=== PATIENT | male | born 1955 | race Caucasian/White ===

== ENCOUNTER 2019-01-14 16:19 | Emergency (ER) | payer BC ==
[~2019-01-14] VITALS: Ht 177.8 cm; Wt 100.2 kg
--- OUTSIDE RECORDS SUMMARY | 2019-01-14 16:22 | XMS REPORT ---
Author Author [facility] Address Unknown Phone Unavailable Care Team Providers Care Want Ad Supervisor Name Role Phone JESUS TOLEDO Unavailable Unavailable Problems This patient has no known problems. Allergies, Adverse Reactions, Alerts This patient has no known allergies or adverse reactions. Medications This patient has no known medications. Results Test Description Test Time Test Comments Text Results Atomic Results Result Comments CHEST 2 VIEWS 2019-01-14 15:00:00 [place] [id number] [place] [address] Patient Name: PRESLEY PAGE MR #: [id number] : 1955 Age/Sex: 63/M Req #: [id number] Adm Physician: Ordered by: JESUS TOLEDO MD Report #: [id number] Location: [place] Room/Bed: Procedure: [id number] DX/CHEST 2 VIEWS Exam Date: 01/14/19 Exam Time: 1425 REPORT STATUS: Signed EXAMINATION: CHEST 2 VIEWS INDICATION: Renal malignancy. COMPARISON: None FINDINGS: TUBES and LINES: None. LUNGS: Lungs are well inflated. Lungs are clear. There is no evidence of pneumonia or pulmonary edema. PLEURA: No pleural effusion or pneumothorax. HEART AND MEDIASTINUM: The cardiomediastinal silhouette is unremarkable. BONES AND SOFT TISSUES: No acute osseous lesion. Soft tissues are unremarkable. UPPER ABDOMEN: No free air under the diaphragm. IMPRESSION: No acute radiographic abnormality. Signed by: Dr. Arthur Bryan MD on 01/14/2019 3:08 PM Dictated By: ARTHUR BRYAN MD [id number] Transcribed By: JOHN on 01/14/19 1501 COPY TO: JESUS TOLEDO MD CT ABDOMEN/PELVIS W 2019-01-14 14:37:00 [place] [address] Patient Name: PRESLEY PAGE MR #: [id number] : 1955 Age/Sex: 63/M Req #: [id number] Adm Physician: Ordered by: JESUS TOLEDO MD Report #: [id number] Location: [place] Room/Bed: Procedure: [id number] CT/CT ABDOMEN/PELVIS W Exam Date: 01/14/19 Exam Time: 1419 REPORT STATUS: Signed EXAM: CT of the abdomen and pelvis WITH contrast HISTORY: Malignant neoplasm, per the patient high PSA and positive prostate biopsy COMPARISON: None available. TECHNIQUE: The abdomen and pelvis were scanned utilizing a multidetector helical scanner. Coronal and sagittal reformats are provided. PROTOCOL: Routine IV CONTRAST: 100 cc of Isovue-370. ORAL CONTRAST: Water RADIATION DOSE: Total DLP: 756.5 to mGy*cm Estimated effective dose: (DLP x 0.015 x size factor) Dose modulation, iterative reconstruction, and/or weight based adjustment of the mA/kV was utilized to reduce the radiation dose to as low as reasonably achievable. COMPLICATIONS: None FINDINGS: LOWER THORAX: Unremarkable. HEPATOBILIARY: Diffusely decreased attenuation, compatible with fatty infiltration. No mass. No biliary dilation. No calcified gallstone. SPLEEN: No splenomegaly. PANCREAS: No focal masses or ductal dilatation. ADRENALS: No discrete adrenal nodule. KIDNEYS/URETERS: No hydronephrosis, stones, or definite solid mass lesions. PELVIC ORGANS/BLADDER: Mild enlargement of the prostate, 5.9 cm (ML). The urinary bladder is partially decompressed, and when allowing for the amount of decompression, the wall appears diffusely thick, questionable 6 mm intraluminal density at the inferior aspect (sagittal image 76). GI TRACT: No dilation or wall thickening identified. No inflammatory changes about the cecum. PERITONEUM / RETROPERITONEUM: No free air or fluid. LYMPH NODES: No pathologically enlarged lymph node. VESSELS: Scattered atherosclerotic vascular calcifications, including the coronary arteries. BONES: Mild diffusely heterogeneous sclerosis and thickening of the right iliac bone and right ischium. A small focus of subchondral curvilinear sclerosis at the weightbearing portion of the right femoral head without associated subchondral collapse. SOFT TISSUES: A small fat-containing umbilical hernia and a moderate fat-containing left inguinal hernia, without associated inflammatory changes. IMPRESSION: 1. Mildly enlarged prostate. 2. The findings involving the osseous structures of the right hemipelvis, are likely the sequela of Paget disease. However, in the setting of prostate cancer with elevated PSA, a nuclear medicine bone scan may be warranted for confirmation. 3. 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 4. Diffuse bladder wall thickening, may reflect chronic outlet obstruction or cystitis in the appropriate setting. Questionable nonspecific 6 mm intraluminal density at the inferior aspect of the bladder, direct visualization may be warranted for further characterization. 5. Coronary atherosclerosis. 6. Hepatic steatosis. Signed by: Dr. Magdalena Chaudhary D.O., M.M.M. on 01/14/2019 2:52 PM Dictated By: MAGDALENA CHAUDHARY DO [id number] Transcribed By: JOHN on 01/14/19 727 COPY TO: JESUS TOLEDO MD
--- NOTE | 2019-01-14 16:45 | NUR ---
ASKED MD IF WANTED IV LINE FOR MEDS, STATES PO ONLY.
[2019-01-14] MEDS ORDERED: CLONIDINE HCL 0.2 MG TAB PO ONE (17:00)
[2019-01-14] MEDS ORDERED: LORAZEPAM 1 MG TAB PO ONE ×2 (17:00→17:15)
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
[2019-01-14] MEDS ORDERED: AMLODIPINE BESYLATE 10 MG TAB PO ONE (18:00)
[2019-01-14] MEDS ORDERED: HYDRALAZINE HCL 25 MG TAB PO ONE (18:00)
--- NOTE | 2019-01-14 18:39 | NUR ---
pt states ok to talke with dad and sister and family regarding his health information.
--- NOTE | 2019-01-14 18:40 | NUR ---
checked by bilaterally.
== END 2019-01-14 19:04 | disposition home or self-care (01) ==
LOC: FSED 16:19
DX: I16.0 Hypertensive urgency (principal); I10 Essential (primary) hypertension
CPT/HCPCS: 93005; 99284

== ENCOUNTER → 2019-01-14 | Outpatient (CLI) | payer BC ==
[~2019-01-14] MED LIST: IOPAMIDOL 370 MG/ML 200 ML INFUS..BTL INJ ONE; SODIUM CHLORIDE 0.9% 50ML 50 ML ONE
[2019-01-14 13:35] LABS: BLOOD UREA NITROGEN 10 mg/dL (7-26); BUN/CREATININE RATIO 10 (6-25); CREATININE, SERUM 0.96 mg/dL (0.72-1.25); EST GLOMERULAR FILTRATION RATE > 60 ML/MIN (60-)
--- NOTE | 2019-01-14 14:55 | Diagnostic Imaging Report ---
EXAM: CT of the abdomen and pelvis WITH contrast HISTORY: Malignant neoplasm, per the patient high PSA and positive prostate biopsy COMPARISON: None available. TECHNIQUE: The abdomen and pelvis were scanned utilizing a multidetector helical scanner. Coronal and sagittal reformats are provided. PROTOCOL: Routine IV CONTRAST: 100 cc of Isovue-370. ORAL CONTRAST: Water RADIATION DOSE: Total DLP: 756.5 to mGy*cm Estimated effective dose: (DLP x 0.015 x size factor) Dose modulation, iterative reconstruction, and/or weight based adjustment of the mA/kV was utilized to reduce the radiation dose to as low as reasonably achievable. COMPLICATIONS: None FINDINGS: LOWER THORAX: Unremarkable. HEPATOBILIARY: Diffusely decreased attenuation, compatible with fatty infiltration. No mass. No biliary dilation. No calcified gallstone. SPLEEN: No splenomegaly. PANCREAS: No focal masses or ductal dilatation. ADRENALS: No discrete adrenal nodule. KIDNEYS/URETERS: No hydronephrosis, stones, or definite solid mass lesions. PELVIC ORGANS/BLADDER: Mild enlargement of the prostate, 5.9 cm (ML). The urinary bladder is partially decompressed, and when allowing for the amount of decompression, the wall appears diffusely thick, questionable 6 mm intraluminal density at the inferior aspect (sagittal image 76). GI TRACT: No dilation or wall thickening identified. No inflammatory changes about the cecum. PERITONEUM / RETROPERITONEUM: No free air or fluid. LYMPH NODES: No pathologically enlarged lymph node. VESSELS: Scattered atherosclerotic vascular calcifications, including the coronary arteries. BONES: Mild diffusely heterogeneous sclerosis and thickening of the right iliac bone and right ischium. A small focus of subchondral curvilinear sclerosis at the weightbearing portion of the right femoral head without associated subchondral collapse. SOFT TISSUES: A small fat-containing umbilical hernia and a moderate fat-containing left inguinal hernia, without associated inflammatory changes. IMPRESSION: 1. Mildly enlarged prostate. 2. The findings involving the osseous structures of the right hemipelvis, are likely the sequela of Paget disease. However, in the setting of prostate cancer with elevated PSA, a nuclear medicine bone scan may be warranted for confirmation. 3. 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 4. Diffuse bladder wall thickening, may reflect chronic outlet obstruction or cystitis in the appropriate setting. Questionable nonspecific 6 mm intraluminal density at the inferior aspect of the bladder, direct visualization may be warranted for further characterization. 5. Coronary atherosclerosis. 6. Hepatic steatosis. Signed by: Dr. Mukund Chaudhary D.O., M.M.M. on 01/14/2019 2:52 PM
--- NOTE | 2019-01-14 15:12 | Diagnostic Imaging Report ---
EXAMINATION: CHEST 2 VIEWS INDICATION: Renal malignancy. COMPARISON: None FINDINGS: TUBES and LINES: None. LUNGS: Lungs are well inflated. Lungs are clear. There is no evidence of pneumonia or pulmonary edema. PLEURA: No pleural effusion or pneumothorax. HEART AND MEDIASTINUM: The cardiomediastinal silhouette is unremarkable. BONES AND SOFT TISSUES: No acute osseous lesion. Soft tissues are unremarkable. UPPER ABDOMEN: No free air under the diaphragm. IMPRESSION: No acute radiographic abnormality. Signed by: Dr. Hebert Huizar MD on 01/14/2019 3:08 PM
--- NOTE | 2019-01-14 21:10 | Diagnostic Imaging Report ---
Bone Scan, delayed phase INDICATION: 63 M with elevated PSA and enlarged prostate; prostate biopsy results pending COMPARISON: CT abdomen/pelvis REPORT: Approximately 3 hours following intravenous administration of 26.5 mCi of Tc-99m MDP, delayed total body images in the anterior and posterior projections and selected spot images were obtained. Diffusely increased tracer is seen throughout the right ilium and right ischium. The right hemipelvis has an expansile appearance. Otherwise, distribution of tracer activity is unremarkable throughout the skeletal system. No abnormal accumulation of tracer is seen in the soft tissues or urinary tract. IMPRESSION: The diffuse osteoblastic process in the right ilium and ischium favors Paget's disease over bone metastases because of its expansile appearance. There are no lesions elsewhere in the skeletal system to suggest a pattern of metastatic bone disease. Signed by: Dr. Jessie Adams M.D. on 01/14/2019 9:06 PM
== END ==
LOC: NM 12:05
PROVIDERS: ATTEND Urology
DX: C61 Malignant neoplasm of prostate (principal)
CPT/HCPCS: 36415; 71046; 74177; 78306; 82565; 84520; A9503; Q9967

== ENCOUNTER 2019-04-04 13:01 | Inpatient (IN) | payer BC ==
[2019-04-01 15:02] LABS: BASOPHILS # (AUTO) 0.1 (0.0-0.1); BASOPHILS % 1.2 % (0.0-1.0); EOSINOPHILS # (AUTO) 0.3 (0.0-0.4); EOSINOPHILS % 3.7 % (0.0-6.0); LYMPHOCYTES # (AUTO) 2.4 (1.0-3.2); LYMPHOCYTES % 29.2 % (18.0-39.1); MEAN CORPUSCULAR HEMOGLOBIN 31.4 pg (28-32); MEAN CORPUSCULAR HGB CONC 34.9 g/dL (31-35); MEAN CORPUSCULAR VOLUME 90.1 fL (81-99); MONOCYTES # (AUTO) 0.8 (0.2-0.8); MONOCYTES % 10.2 % (4.4-11.3); NEUTROPHILS # (AUTO) 4.5 (2.1-6.9); PLATELET COUNT 207 x10e3/uL (140-360); RED BLOOD COUNT 4.77 x10e6/uL (4.3-5.7); RED CELL DISTRIBUTION WIDTH 12.6 % (11.7-14.4)
[~2019-04-04] VITALS: Ht 177.8 cm; Wt 103.4 kg
[~2019-04-04 13:01] MED LIST changes: +CRESTOR10 MG PO; -IOPAMIDOL 370 MG/ML 200 ML INFUS..BTL INJ ONE; +LOSARTAN POTAS100 MG PO; +METOPROLOL SUC100 MG PO; -SODIUM CHLORIDE 0.9% 50ML 50 ML ONE
[2019-04-04] MEDS ORDERED: CEFAZOLIN SOD 1 GM/NS 50ML 50 ML IV ONE (13:12)
[2019-04-04] MEDS ORDERED: D5.45%NS/KCL 20MEQ 1,000 ML IV SCH (16:22)
[2019-04-04] MEDS ORDERED: NALOXONE HCL INJ 0.4 MG/ML AMP IV PRN (16:30)
[2019-04-04] MEDS ORDERED: ACETAMINOPHEN 1000 MG/100 ML IV PRN (16:30)
[2019-04-04] MEDS ORDERED: DIPHENHYDRAMINE HCL INJ 50 MG/ML VIAL IM PRN (16:30)
[2019-04-04] MEDS ORDERED: ONDANSETRON HCL INJ 2MG/ML 2ML 2 MG/ML VIAL IV PRN (16:30)
[2019-04-04] MEDS ORDERED: MORPHINE SULFATE 1 MG/ML 30ML PCA IV PRN (16:30)
[2019-04-04] MEDS ORDERED: HYDROMORPHONE 2MG/ML 2 MG/ML ML ONE (16:45)
[2019-04-04] MEDS ORDERED: DEXAMETHASONE SOD PHOS INJ 4 MG/ML VIAL ONE (17:08)
[2019-04-04] MEDS ORDERED: ROCURONIUM BROMIDE 10 MG/ML 5ML VIAL ONE (17:08)
[2019-04-04] MEDS ORDERED: PROPOFOL IV EMULSION 10 MG/ML 20 ML VIAL ONE (17:08)
[2019-04-04] MEDS ORDERED: LIDOCAINE HCL 2% LOCAL INJ 5 ML SDV VIAL INJ ONE (17:08)
[2019-04-04] MEDS ORDERED: ACETAMINOPHEN 1000 MG/100 ML IV ONE (17:08)
[2019-04-04] MEDS ORDERED: SEVOFLURANE INHAL SOLN 250 ML PEN BTL ONE (17:08)
[2019-04-04] MEDS ORDERED: ONDANSETRON HCL INJ 2MG/ML 2ML 2 MG/ML VIAL ONE (17:08)
[2019-04-04] MEDS ORDERED: LIDOCAINE HCL 2% JELLY 5 ML TUBE ONE (17:08)
--- NOTE | 2019-04-04 17:49 | NUR ---
received to rm [id number] no distress noted, updated on poc vocied understanding, denies pain at this time, ivf infusing to r fa 20g no ss of infiltration noted, sergeant of corrections pump on demand instructed on usage voiced understanding, dsg to abdomen c/d/i, cheryl drain with bloody drainage noted, camara to bsd with yellow urine noted, no other co voiced call light in reach will continue ot monitor
[2019-04-04 17:54] VITALS: BP 138/75
[2019-04-04] MEDS ORDERED: MORPHINE SULFATE INJ 10 MG/ML ONE (19:29)
[2019-04-04] MEDS ORDERED: MIDAZOLAM HCL 2 MG/2 ML VIAL ONE (19:29)
[2019-04-04] MEDS ORDERED: FENTANYL CITRATE/PF 100MCG/2 ML INJ ONE (19:29)
[2019-04-04 19:30] VITALS: BP 138/75
[2019-04-04 20:00] VITALS: BP 116/60
[2019-04-04] MEDS: CEFAZOLIN SOD 1 GM/NS 50ML 50 ML IV SCH (20:33)
[2019-04-04] MEDS: SODIUM CHLORIDE 0.9% 1000ML 1,000 ML IV SCH (20:53)
[2019-04-04] MEDS: CRESTOR 10MG PO SCH (20:53)
[2019-04-04] MEDS: METOPROLOL SUCCINATE 50 MG TAB XL PO SCH (20:53)
[2019-04-04] MEDS ORDERED: NON-FORMULARY MEDICATION (Metoprolol Succinate 100 MG) PO SCH (21:00)
[2019-04-04] MEDS ORDERED: SIMVASTATIN 40 MG TAB PO SCH (21:00)
[2019-04-05] VITALS (8 sets, daily range): BP systolic 108–150; BP diastolic 63–77
[2019-04-05] MEDS: CEFAZOLIN SOD 1 GM/NS 50ML 50 ML IV SCH ×3 (05:01→21:46)
[2019-04-05 05:49] LABS: BASOPHILS % 0.3 % (0.0-1.0); EOSINOPHILS % 0.1 % (0.0-6.0); HEMATOCRIT 38.9 % (38.2-49.6); HEMOGLOBIN 12.9 g/dL (14.0-18.0); LYMPHOCYTES # (AUTO) 1.5 (1.0-3.2); LYMPHOCYTES % 12.3 % (18.0-39.1); MEAN CORPUSCULAR HEMOGLOBIN 30.9 pg (28-32); MEAN CORPUSCULAR HGB CONC 33.2 g/dL (31-35); MEAN CORPUSCULAR VOLUME 93.3 fL (81-99); MONOCYTES # (AUTO) 1.3 (0.2-0.8); MONOCYTES % 10.9 % (4.4-11.3); PLATELET COUNT 166 x10e3/uL (140-360); RED BLOOD COUNT 4.17 x10e6/uL (4.3-5.7); RED CELL DISTRIBUTION WIDTH 12.7 % (11.7-14.4)
[2019-04-05 06:09] LABS: ANION GAP 10.7 mmol/L (8-16); BLOOD UREA NITROGEN 15 mg/dL (7-26); BUN/CREATININE RATIO 16 (6-25); CALCIUM 8.8 mg/dL (8.4-10.2); CARBON DIOXIDE 27 mmol/L (22-29); CHLORIDE 105 mmol/L (98-107); CREATININE, SERUM 0.96 mg/dL (0.72-1.25); EST GLOMERULAR FILTRATION RATE > 60 ML/MIN (60-); GLUCOSE 112 mg/dL (74-118); POTASSIUM 3.7 mmol/L (3.5-5.1); SODIUM 139 mmol/L (136-145)
[2019-04-05] MEDS: SODIUM CHLORIDE 0.9% 1000ML 1,000 ML IV SCH ×3 (07:07→19:48)
[2019-04-05] MEDS: LOSARTAN POTASSIUM 100 MG TAB PO SCH (08:17)
[2019-04-05] MEDS ORDERED: BISACODYL 10 MG SUPP PR PRN (08:30)
[2019-04-05] MEDS ORDERED: MORPHINE SULFATE 1 MG/ML 30ML PCA IV PRN (08:30)
[2019-04-05] MEDS ORDERED: BISACODYL 10 MG SUPP PR ONE (08:30)
--- NOTE | 2019-04-05 09:30 | NUR ---
MAYS D/C AT THIS TIME PER ORDERS. PROVIDED WITH URINAL. INSTRUCTED TO USE WITH EACH VOID. PT VERBALIZED UNDERSTANDING. PT LEFT SITTING IN CHAIR. CALL LIGHT AND MACHINE CLIPPER CONTROL WITHIN REACH. INSTRUCTED TO CALL FOR ASSISTANCE.
--- NOTE | 2019-04-05 10:47 | NUR ---
PT AMBULATED IN HALLWAY AND WAS ASSISTED BACK TO BED. DULCOLAX SUPPOSITORY ADMINISTERED AT THIS TIME.
--- NOTE | 2019-04-05 13:30 | NUR ---
PT VOIDED AT THIS TIME.
--- NOTE | 2019-04-05 14:59 | NUR ---
PT STATES HE IS NOW PASSING GAS AND IS REQUESTING WATER. NOTIFIED DR. Peter TOLEDO RECEIVED ORDER FOR CLEAR LIQUID DIET. PROVIDED PT WITH WATER AND JELLO AT THIS TIME.
--- NOTE | 2019-04-05 19:42 | History and Physical ---
Mr. Duenas is a pleasant 63-year-old Latin-Indian man, who is admitted at this time for pelvic surgery by Dr. Diego for prostate cancer. HISTORY OF PRESENT ILLNESS: The patient had possible prostate cancer late last year. He has had evaluation of the study with a CAT scan and nuclear studies and is admitted at this time for lymph node resections. PAST MEDICAL HISTORY: Significant for hypertension and hyperlipidemia. HOME MEDICATIONS: Currently include: 1. Toprol-XL 50 mg daily. 2. Crestor 5 mg daily. 3. Losartan 25 mg once a day. PAST SURGICAL HISTORY: He has had previous surgery for a mass on his left foot. FAMILY HISTORY: Father is alive and well. Mother had cerebral aneurysm. PERSONAL AND SOCIAL HISTORY: The patient occasionally drinks alcohol, but no longer smokes. PHYSICAL EXAMINATION: GENERAL: At this time shows a pleasant Latin-Indian man, 5 feet 10 inches tall, about 223 pounds. Blood pressure 130/80. HEAD, EYES, EARS, NOSE, AND THROAT: Unremarkable. NECK: No jugular venous distention. THORAX: Heart sounds S1, S2 are equal. No murmurs. LUNGS: Clear. ABDOMEN: Protuberant. EXTREMITIES: No cyanosis, clubbing, or edema. ASSESSMENT: 1. Prostate carcinoma. 2. Hypertension. PLAN: I believe the patient represents standard risk. Please note, I asked him to increase his Toprol-XL to 100 mg daily at his last office visit. MD WALE Goss/NAPOLEON /[id number] cc: Napoleon Diego MD
[2019-04-05] MEDS: METOPROLOL SUCCINATE 50 MG TAB XL PO SCH (19:48)
[2019-04-05] MEDS: CRESTOR 10MG PO SCH (19:48)
[2019-04-06] VITALS (8 sets, daily range): BP systolic 111–146; BP diastolic 66–83
[2019-04-06] MEDS: SODIUM CHLORIDE 0.9% 1000ML 1,000 ML IV SCH ×3 (04:41→21:32)
[2019-04-06] MEDS: CEFAZOLIN SOD 1 GM/NS 50ML 50 ML IV SCH ×3 (04:41→21:35)
--- NOTE | 2019-04-06 07:10 | NUR ---
PT RESTING IN BED COMFORTABLY. PT IS S/P BILATERAL LYMPHADECTOMY. DRESSING TO THE LOWER ABD MIDLINE IS DRY AND INTACT. BELOW DRESSING IS A DEANDRA DRAIN SECURED TO GOWN PT REPORTS TOLERABLE PAIN 3/10 TO ABD. ON FILM RENTAL CLERK PUMP FOR PAIN CONTROL AND ON IV FLUIDS. PT IS ON CLEAR LIQUID DIET TOLERATING WELL WILL CONTINUE TO MONITOR PT CLOSELY. SIDE RAILSX2, BED WHEELS LOCKED, CALL LIGHT IS WITHIN EASY REACH, INSTRUCTED TO CALL FOR ASSISTANCE IF NEEDED
[2019-04-06] MEDS: LOSARTAN POTASSIUM 100 MG TAB PO SCH (08:34)
[2019-04-06 09:10] LABS: BASOPHILS # (AUTO) 0.1 (0.0-0.1); BASOPHILS % 0.6 % (0.0-1.0); EOSINOPHILS # (AUTO) 0.2 (0.0-0.4); EOSINOPHILS % 1.9 % (0.0-6.0); HEMATOCRIT 39.6 % (38.2-49.6); HEMOGLOBIN 13.4 g/dL (14.0-18.0); LYMPHOCYTES # (AUTO) 2.1 (1.0-3.2); MEAN CORPUSCULAR HEMOGLOBIN 31.5 pg (28-32); MEAN CORPUSCULAR HGB CONC 33.8 g/dL (31-35); MONOCYTES # (AUTO) 1.2 (0.2-0.8); MONOCYTES % 10.5 % (4.4-11.3); NEUTROPHILS # (AUTO) 7.8 (2.1-6.9); NEUTROPHILS % 68.5 % (38.7-80.0); PLATELET COUNT 168 x10e3/uL (140-360); RED BLOOD COUNT 4.26 x10e6/uL (4.3-5.7); RED CELL DISTRIBUTION WIDTH 12.8 % (11.7-14.4)
[2019-04-06 09:18] LABS: ANION GAP 10.8 mmol/L (8-16); BLOOD UREA NITROGEN 11 mg/dL (7-26); BUN/CREATININE RATIO 13 (6-25); CALCIUM 8.8 mg/dL (8.4-10.2); CARBON DIOXIDE 26 mmol/L (22-29); CHLORIDE 106 mmol/L (98-107); CREATININE, SERUM 0.87 mg/dL (0.72-1.25); EST GLOMERULAR FILTRATION RATE > 60 ML/MIN (60-); GLUCOSE 106 mg/dL (74-118); POTASSIUM 3.8 mmol/L (3.5-5.1); SODIUM 139 mmol/L (136-145)
[2019-04-06] MEDS ORDERED: INDOMETHACIN50 MG PO (11:50)
[2019-04-06] MEDS: ACETAMINOPHEN/CODEINE 300MG - 30MG TAB PO PRN ×2 (17:47→22:16)
--- NOTE | 2019-04-06 20:10 | NUR ---
Ambulates.voided.assessment done.no resp.distress.using ics.bed locked and in lowest position.phone and call light within reach.educated to call for assistance as needed.cheryl drain is in place.stable condition.
[2019-04-06] MEDS: CRESTOR 10MG PO SCH (21:32)
[2019-04-06] MEDS: METOPROLOL SUCCINATE 50 MG TAB XL PO SCH (21:34)
[2019-04-07] VITALS: BP 143/86
[2019-04-07] MEDS: ACETAMINOPHEN/CODEINE 300MG - 30MG TAB PO PRN ×2 (02:24→06:26)
[2019-04-07 04:00] VITALS: BP 140/88
--- NOTE | 2019-04-07 04:05 | Operative Report ---
DATE OF PROCEDURE: 04/04/2019 SURGEON: Oskar Diego MD PREOPERATIVE DIAGNOSES: 1. Prostate cancer. 2. Bladder lesion. 3. Umbilical hernia. POSTOPERATIVE DIAGNOSES: 1. Prostate cancer. 2. Umbilical hernia. 3. Bladder lesion consistent with bladder cancer. OPERATION PERFORMED: 1. Cystourethroscopy (separately performed to evaluate the bladder lesions). 2. Bilateral pelvic lymphadenectomy (separately performed to stage the patient's prostate cancer). 3. Umbilical hernia repair (separate procedure performed for the umbilical hernia). ENTRY LEVEL RECRUITER: Kiki Diego MD ANESTHESIA: General. COMPLICATIONS: None. CLINICAL SUMMARY: Bradley Duenas Jr. is a 63-year-old man, who was evaluated for elevated PSA. The patient's PSA was above 10. He underwent prostate biopsies, which proved to be positive. The patient is brought to the operating room for staging. He has umbilical hernia. He would like to repair. The patient on staging CT was found to have a bladder lesion. We plan to evaluate the patient's bladder with cystoscopic examination. OPERATIVE PROCEDURE IN DETAIL: Informed consent was verified. Bradley Duenas Jr. was properly identified, taken to the operating room, placed on the operating table in supine position. Anesthesia was uneventfully begun. The patient's abdomen, genitalia were shaved, prepped, and draped in usual sterile fashion. Flexible cystourethroscopy was performed. The cystoscope was inserted under direct vision into the patient's urethra. It was guided down the unremarkable urethra through the prostate bed, which was significant for early BPH. We entered the patient's bladder, which was significant for grade 1 trabeculations and there was a bladder tumor at the anterior portion of the right lateral wall consistent with bladder cancer. Due to the fact that we are performing a sterile procedure today, we did not proceed with transurethral resection of bladder tumor and we will do this at a later setting. The cystoscope was withdrawn. A Shane catheter was placed. A midline infraumbilical incision was made, carried through all layers of the abdominal wall. An extraperitoneal approach was utilized. The Garcia Sachin retractor was utilized as well. We performed bilateral pelvic lymphadenectomy. We utilized hemoclips to control the lymphatic channels as well as blood vessels. Margins of resection bilaterally included the Kevon's ligament at the distal margin, external iliac vein as the anterolateral margin, obturator fossa as the posterior medial margin, and bifurcation of common iliac as the proximal margin. Copious irrigation was performed. Hemostasis was verified. The obturator nerves were left uninjured and intact bilaterally. A Klaus drain was then placed through a separate stab incision and secured to the skin with nylon suture. We then proceeded with extending our incision and dissection. An intraperitoneal approach was then utilized. We isolated the umbilical hernia. The umbilical hernia was small. Once we fully isolated the umbilical hernia and it from any underlying attachments, we then utilized a heavy nonabsorbable suture to approximate and close the defect. This resulted in complete reduction of the umbilical hernia. Copious irrigation was performed and verified hemostasis. The rectus muscles were approximated with Vicryl suture in interrupted fashion. The fascia was approximated with heavy Vicryl suture in a [id number] interrupted fashion. The skin was approximated with skin ladonna. Sterile dressings were applied. The patient was uneventfully reversed from anesthesia and taken to recovery room in stable condition. There were no complications of the procedure. The patient tolerated the procedure well. Sponge, needle, and instrument counts were correct x2 within the case. Estimated blood loss was 50 mL. We will plan to proceed with routine postoperative care. Of course, we will follow the patient up on an indefinite basis in addition to his other management, we will perform a transurethral resection of the bladder tumor as an outpatient procedure in the near future. Oskar Diego MD OH/MODL /[id number] cc: Napoleon Parson
[2019-04-07] MEDS: SODIUM CHLORIDE 0.9% 1000ML 1,000 ML IV SCH (05:19)
[2019-04-07] MEDS: CEFAZOLIN SOD 1 GM/NS 50ML 50 ML IV SCH (05:37)
--- NOTE | 2019-04-07 07:35 | NUR ---
PT RESTING IN CHAIR COMFORTABLY. PT REPORTS PAIN TOLERABLE AT THIS TIME TO ABD ABD SITE DRESSING REMAINS DRY AND INTACT. DEANDRA DRAIN IS SECURED TO GOWN AND SUCTIONED. PT IV IS ON THE RIGHT FA PATENT AND DRY WILL CONTINUE TO MONITOR AT THIS TIME, SIDE RAILSX2, BED WHEELS LOCKED, CALL LIGHT IS WITHIN EASY REACH, INSTRUCTED TO CALL FOR ASSISTANCE IF NEEDED
[2019-04-07 07:53] VITALS: BP 145/88
[2019-04-07] MEDS ORDERED: INDOMETHACIN 50 MG PO PRN (08:30)
[2019-04-07] MEDS: LOSARTAN POTASSIUM 100 MG TAB PO SCH (08:31)
[2019-04-07 08:33] VITALS: BP 145/88
[2019-04-07] MEDS ORDERED: INDOMETHACIN 25 MG CAP PO PRN (09:00)
[2019-04-07] MEDS ORDERED: DOCUSATE SODIUM 100 MG CAP PO SCH (09:00)
[2019-04-07 09:35] LABS: BASOPHILS % 0.1 % (0.0-1.0); EOSINOPHILS # (AUTO) 0.2 (0.0-0.4); EOSINOPHILS % 1.7 % (0.0-6.0); HEMATOCRIT 39.5 % (38.2-49.6); LYMPHOCYTES # (AUTO) 1.7 (1.0-3.2); LYMPHOCYTES % 16.4 % (18.0-39.1); MEAN CORPUSCULAR HEMOGLOBIN 31.5 pg (28-32); MEAN CORPUSCULAR HGB CONC 35.4 g/dL (31-35); MONOCYTES % 9.8 % (4.4-11.3); NEUTROPHILS # (AUTO) 7.2 (2.1-6.9); NEUTROPHILS % 71.6 % (38.7-80.0); PLATELET COUNT 176 x10e3/uL (140-360); RED BLOOD COUNT 4.44 x10e6/uL (4.3-5.7); RED CELL DISTRIBUTION WIDTH 12.1 % (11.7-14.4)
--- NOTE | 2019-04-07 11:01 | NUR ---
SPOKE WITH PT [facility], SIGNED CHOICE FOR NURSES NIGHT AND DAY FAXED CLINICALS TO [phone]. WILL CONFIRM PT ACCEPTANCE.
[2019-04-07 11:05] LABS: ANION GAP 14.3 mmol/L (8-16); BLOOD UREA NITROGEN 8 mg/dL (7-26); BUN/CREATININE RATIO 10 (6-25); CALCIUM 9.1 mg/dL (8.4-10.2); CARBON DIOXIDE 22 mmol/L (22-29); CHLORIDE 100 mmol/L (98-107); CREATININE, SERUM 0.83 mg/dL (0.72-1.25); EST GLOMERULAR FILTRATION RATE > 60 ML/MIN (60-); GLUCOSE 157 mg/dL (74-118); POTASSIUM 3.3 mmol/L (3.5-5.1); SODIUM 133 mmol/L (136-145)
[2019-04-07] MEDS ORDERED: TYLENOL WITH C1 EACH PO (11:05)
[2019-04-07] MEDS ORDERED: BACTRIM DS TAB1 EACH PO (11:06)
[2019-04-07 11:50] VITALS: BP 144/85
--- NOTE | 2019-04-07 12:43 | NUR ---
DISCHARGE INSTRUCTIONS AND PRESCRIPTIONS GIVEN, PT VERBALIZED UNDERSTANDING. IV DC PRESSURE DRESSING APPLIED AND TAPED HH SET IS NOW OFF UNIT TO HOME
--- NOTE | 2019-04-08 16:33 | Discharge Summary ---
Mr. Duenas is a complex 63-year-old man, who was admitted on the for further evaluation of prostate cancer. HOSPITAL COURSE: On the , he was taken to the operating room by Dr. Diego, performed cystoscopy that demonstrated a bladder tumor and also laparotomy with a resection of lymph nodes and repair of umbilical hernia. The patient tolerated the procedure well, had some nausea postop, possibly due to analgesics. The patient on the first postoperative day had NG tube removed. He was able to resume liquids and resumed his blood pressure medications. The patient made gradual progress and by the , was eager to be discharged home. He will resume his home medications and follow up with Dr. Diego for further management of prostate cancer and bladder tumor. He will follow up with Dr. Parson on a regular basis. DISCHARGE DIAGNOSES: 1. Prostate cancer. 2. Bladder tumor. 3. Repair of umbilical hernia. 4. Resection of lymph nodes. 5. Hypertension. 6. Hyperlipidemia. MD WALE Goss/NAPOLEON /[id number] cc: MD Napoleon Dixon
--- NOTE | 2019-04-08 16:48 | NUR ---
CALLED BY DR TOLEDO AND TOLD [facility] DID NOT GO SEE PT, CALLED NURSES NIGHT AND DAY AND SPOKE WITH [facility] AT FIRST THEY STATED THEY DID NOT GET THE ORDER THEN AFTER LOOKING THEY STATED THEY FOUND THE ORDERS AND WILL CONTACT THE PT TO LET KNOW WHEN THEY ARE COMING OUT TO THE PT HOME.
== END 2019-04-07 12:30 | disposition home or self-care (01) | DRG 714 ==
LOC: OR 13:01 → MED/SURG 17:42
PROVIDERS: ADMIT Internal Medicine Cardiovascular Disease; ATTEND Internal Medicine Cardiovascular Disease
PROC: 0V508ZZ Destruction of Prostate, Via Natural or Artificial Opening Endoscopic (ICD-10-PCS; 2019-04-04)
PROC: 0WQF0ZZ Repair Abdominal Wall, Open Approach (ICD-10-PCS; 2019-04-04)
PROC: 07BC0ZZ Excision of Pelvis Lymphatic, Open Approach (ICD-10-PCS; principal; 2019-04-04 15:00)
DX: C61 Malignant neoplasm of prostate (principal); K42.9 Umbilical hernia without obstruction or gangrene; R59.0 Localized enlarged lymph nodes; I10 Essential (primary) hypertension; N32.9 Bladder disorder, unspecified; E78.5 Hyperlipidemia, unspecified
CPT/HCPCS: 36415; 80048; 85025; 86850; 86900; 88304; 88307; 93005; J0690; J1100; J2001; J2250; J2270; J2405; J7030

== ENCOUNTER → 2019-04-27 | Day surgery (SDC) | payer BC ==
[~2019-04-27] MED LIST changes: +AMLODIPINE BESYL5 MG PO; +B&O 60MG R/S 60 MG SUPP PR ONE; +BACTRIM DS TAB1 EACH PO; +CEFTRIAXONE SOD 1 GM/NS 50 ML 50 ML IV ONE; +DEXAMETHASONE SOD PHOS INJ 4 MG/ML VIAL ONE; +FENTANYL CITRATE/PF 100MCG/2 ML INJ ONE; +INDOMETHACIN50 MG PO; +IOPAMIDOL 610MG/1ML 300 MG/ML VIAL IV ONE; +LIDOCAINE HCL 2% LOCAL INJ 5 ML SDV VIAL INJ ONE; +MIDAZOLAM HCL 2 MG/2 ML VIAL ONE; +ONDANSETRON HCL INJ 2MG/ML 2ML 2 MG/ML VIAL ONE; +PROPOFOL IV EMULSION 10 MG/ML 20 ML VIAL ONE; +SEVOFLURANE INHAL SOLN 250 ML PEN BTL ONE; +TYLENOL WITH C1 EACH PO
[2019-04-27 09:17] VITALS: BP 144/92
--- NOTE | 2019-06-08 05:05 | Operative Report ---
DATE OF PROCEDURE: 04/27/2019 SURGEON: Oskar Diego MD PREOPERATIVE DIAGNOSES: 1. Obstructive benign prostatic hyperplasia. 2. Bladder lesion. POSTOPERATIVE DIAGNOSES: 1. Obstructive benign prostatic hyperplasia. 2. Bladder lesion. 3. Short bulbar urethral stricture. OPERATION PERFORMED: Note these were all staged procedures that are unrelated to the patient's prior pelvic lymphadenectomy. These procedures were performed as a result of finding tumor on the patient's cystoscopy at the time of pelvic lymphadenectomy for prostate cancer staging. The patient is aware of the risks of bleeding, infection, injury to adjacent structures, need for further procedures, and elected to proceed. Cystourethroscopy with calibration and dilation of short bulbar urethral stricture. OPERATIVE PROCEDURE IN DETAIL: Informed consent was verified. Barak Duenas Junior was properly identified, taken to the operating room, and placed on the cystoscopy table in supine position. Anesthesia was uneventfully begun. The patient was then carefully and gently repositioned in the dorsal lithotomy position with all pressure points well padded. His genitalia were prepared and draped in usual sterile fashion. The cystoscope sheath with the visual obturator in place was atraumatically inserted into the patient's urethra, it was guided down unremarkably urethra through a short bulbar urethral stricture that was gently dilated with the cystoscope sheath and this was dilated and calibrated to 22.5-Macanese in size. We passed through the prostate bed, which was significant for trilobar prostatic hypertrophy with a small median lobe, went to the patient's bladder and it was drained. Panendoscopy of the bladder revealed a bladder tumor anteriorly near the bladder neck, mostly on the right side of the bladder. There were no other suspicious lesions. There were no tumors. An 8-Macanese catheter was used to cannulate each ureter and retrograde ureteropyelogram was performed. Interpretation of retrograde ureteropyelography: Contrast was instilled in retrograde fashion bilaterally. There were no tumors, no stones, and no diverticula. Unobstructed drainage was observed bilaterally fluoroscopically. The distal ureters were both displaced medially, most likely from the patient's pelvic lymphadenectomy. Unobstructed drainage was observed bilaterally fluoroscopically. Cold cup biopsy forceps were then utilized to excise the bladder tumor. We then utilized a Bugbee electrode to vaporize and fulgurate the bladder mucosa for a total diameter of approximately 3 cm including the tumor base as well as the surrounding mucosa. Excellent hemostasis was achieved. The patient bladder was drained. Belladonna and opium suppository were placed. The patient was uneventfully reversed from anesthesia and taken to recovery room in stable condition. There were no complications to the procedure. He tolerated the procedure well. Plans will be to follow the patient up in the office for uroflowmetry and bladder ultrasonography should the patient's pelvic lymphadenectomy be negative, and should he require to proceed with radiotherapy. Careful consideration needs to be given to performing a transurethral resection of the prostate and waiting six months for the patient to heal prior to pursuing radiotherapy. Oskar MD SOHA Diego/NAPOLEON /[id number] cc: Napoleon Parson
== END | disposition home or self-care (01) ==
LOC: OR 05:23
PROVIDERS: ATTEND Urology
DX: C67.3 Malignant neoplasm of anterior wall of bladder (principal); R97.20 Elevated prostate specific antigen [PSA]; N40.1 Benign prostatic hyperplasia with lower urinary tract symptoms; N13.8 Other obstructive and reflux uropathy; R39.14 Feeling of incomplete bladder emptying; R35.1 Nocturia; N35.912 Unspecified bulbous urethral stricture, male; K42.9 Umbilical hernia without obstruction or gangrene; K40.90 Unilateral inguinal hernia, without obstruction or gangrene, not specified as recurrent; E29.1 Testicular hypofunction; I10 Essential (primary) hypertension; F17.200 Nicotine dependence, unspecified, uncomplicated; Z68.33 Body mass index [BMI] 33.0-33.9, adult
CPT/HCPCS: 52235; 74420; 88305; C1758; J0696; J1100; J2001; J2250; J2405; J2704; Q9967; J3010

== ENCOUNTER → 2019-11-09 | Day surgery (SDC) | payer BC ==
[2019-11-07 11:51] LABS: BASOPHILS # (AUTO) 0.1 (0.0-0.1); EOSINOPHILS # (AUTO) 0.4 (0.0-0.4); EOSINOPHILS % 5.2 % (0.0-6.0); HEMATOCRIT 38.5 % (38.2-49.6); HEMOGLOBIN 13.3 g/dL (14.0-18.0); LYMPHOCYTES # (AUTO) 1.3 (1.0-3.2); LYMPHOCYTES % 19.4 % (18.0-39.1); MEAN CORPUSCULAR HEMOGLOBIN 31.3 pg (28-32); MEAN CORPUSCULAR HGB CONC 34.5 g/dL (31-35); MEAN CORPUSCULAR VOLUME 90.6 fL (81-99); MONOCYTES # (AUTO) 0.8 (0.2-0.8); NEUTROPHILS # (AUTO) 4.2 (2.1-6.9); NEUTROPHILS % 61.2 % (38.7-80.0); PLATELET COUNT 210 x10e3/uL (140-360); RED BLOOD COUNT 4.25 x10e6/uL (4.3-5.7); RED CELL DISTRIBUTION WIDTH 12.2 % (11.7-14.4)
[2019-11-07 12:15] LABS: ANION GAP 13.3 mmol/L (8-16); BLOOD UREA NITROGEN 19 mg/dL (7-26); BUN/CREATININE RATIO 20 (6-25); CALCIUM 9.7 mg/dL (8.4-10.2); CARBON DIOXIDE 23 mmol/L (22-29); CHLORIDE 101 mmol/L (98-107); CREATININE, SERUM 0.96 mg/dL (0.72-1.25); EST GLOMERULAR FILTRATION RATE > 60 ML/MIN (60-); GLUCOSE 90 mg/dL (74-118); POTASSIUM 4.3 mmol/L (3.5-5.1); SODIUM 133 mmol/L (136-145)
[~2019-11-09] MED LIST changes: -B&O 60MG R/S 60 MG SUPP PR ONE; +FLOMAX0.4 MG PO; +GLYCOPYRROLATE INJ 0.2 MG/ML VIAL ONE; -IOPAMIDOL 610MG/1ML 300 MG/ML VIAL IV ONE
[2019-11-09 14:13] VITALS: BP 133/86
--- NOTE | 2019-11-13 05:18 | Operative Report ---
DATE OF PROCEDURE: 11/09/2019 SURGEON: Oskar Diego MD PREOPERATIVE DIAGNOSES: 1. Bladder cancer. 2. Microhematuria. POSTOPERATIVE DIAGNOSES: 1. Bladder cancer. 2. Microhematuria. 3. 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 OPERATIONS PERFORMED: 1. Cystourethroscopy with calibration and dilation of fossa navicularis stricture (separate procedure performed for the diagnosis of stricture). 2. Cystourethroscopy with bilateral ureteral catheterization and retrograde ureteropyelography (separate procedure performed for the microhematuria). 3. Interpretation of retrograde ureteropyelography. 4. Supervision of fluoroscopy, no radiologist present. 5. Cystourethroscopy with complicated transurethral resection of more than 2 dozen bladder tumors throughout the entire bladder accounting for well over 5 cm of total tumor diameter. ANESTHESIA: General. COMPLICATIONS: None. CLINICAL SUMMARY: Barak Duenas junior is a 64-year-old man with prostate cancer. Upon working up for the prostate cancer, the patient was found to have bladder cancer as well. He underwent transurethral resection of stage Ta bladder cancer on April 27, 2019. Followup cystoscopic examination revealed no residual cancer. The patient was supposed to have ongoing bladder cancer surveillance, however, his next surveillance was due during the middle of his course of image-guided radiotherapy for his prostate cancer. The patient was brought to the operating room for his first cystoscopic evaluation since he has completed his IGRT. He is aware of the risks of bleeding, infection, injury to adjacent structures, need for additional procedures and elected to proceed. OPERATIVE PROCEDURE IN DETAIL: Informed consent was verified. Barak Duenas junior was properly identified, taken to the operating room, placed on the cystoscopy table in supine position. Anesthesia was uneventfully begun. The patient was then carefully gently repositioned in dorsal lithotomy position with all pressure points well padded. His genitalia were prepared and draped in usual sterile fashion. The 22.5-Serbian cystoscope sheath with visual obturator in place was atraumatically inserted into the patient's urethral meatus. There was a stricture that we cannot traverse at the level of the fossa navicularis. The stricture was dilated gently with the scope and sheath, thus calibrating and dilating it to 22.5-Serbian in size. The remainder of the urethra was unremarkable. The prostate bed was significant for early BPH. We entered the patient's bladder where panendoscopy revealed several dozen tumors throughout the entire bladder surface. All this appeared to be superficial disease, but the volume of disease was quite remarkable given the fact that it has almost been several months since the patient was cystoscopically negative for cancer. An 8-Serbian catheter was used to cannulate each ureter and retrograde ureteral pyelograms were performed. Interpretation of retrograde ureteropyelography, contrast was instilled in retrograde fashion bilaterally. There were no tumors, no stones, no diverticula. Unobstructed drainage was observed bilaterally fluoroscopically. There was medial deviation of both distal ureters. There was no hydronephrosis and unobstructed drainage was observed bilaterally fluoroscopically. Cold cup biopsy forceps were then utilized to biopsy 4 of these numerous lesions. We then utilized Bugbee electrode to vaporize as well as coagulate every other visible tumor. Careful panendoscopy of the urinary bladder was performed with both 30 and 70 degree lens. No residual visible bladder tumors were identified. The cystoscope was withdrawn. Shane catheter was placed. It was irrigated to and fro to ensure it worked properly. A belladonna and opium suppository was placed revealing a smooth prostate that is nonfluctuant. The patient was then uneventfully reversed from anesthesia and taken to recovery room in stable condition. There were no complications during the procedure. He tolerated the procedure well. Plans will be to follow the patient up in approximately 10-14 days, remove his Shane catheter, and come up with a long-term followup plan. The plan will include return to the operating room in approximately 6-8 weeks for a surveillance cystoscopy and indicated procedures. We also plan on attempting to order BCG for a 6-week course of BCG immunotherapy induction. Regardless, we will plan to look back inside the patient's bladder in approximately 6-8 weeks to determine if any residual recurrent bladder cancer needs to be addressed. Oskar Diego MD OH/MODL /[id number] cc: Napoleon Diego MD
== END | disposition home or self-care (01) ==
LOC: OR 10:04
PROVIDERS: ATTEND Urology
DX: C67.9 Malignant neoplasm of bladder, unspecified (principal); I10 Essential (primary) hypertension; R31.29 Other microscopic hematuria; N35.819 Other urethral stricture, male, unspecified site; Z01.810 Encounter for preprocedural cardiovascular examination; Z01.812 Encounter for preprocedural laboratory examination
CPT/HCPCS: 36415; 52240; 74420; 80048; 85025; 88305; 93005; C1758; J0696; J1100; J2001; J2250; J2405; J2704; J3010

== ENCOUNTER → 2020-01-13 | Day surgery (SDC) | payer BC ==
[2020-01-11 11:56] LABS: ANION GAP 14.6 mmol/L (8-16); BLOOD UREA NITROGEN 15 mg/dL (7-26); BUN/CREATININE RATIO 15 (6-25); CALCIUM 9.7 mg/dL (8.4-10.2); CARBON DIOXIDE 25 mmol/L (22-29); CHLORIDE 102 mmol/L (98-107); CREATININE, SERUM 1.02 mg/dL (0.72-1.25); EST GLOMERULAR FILTRATION RATE > 60 ML/MIN (60-); GLUCOSE 104 mg/dL (74-118); POTASSIUM 4.6 mmol/L (3.5-5.1); SODIUM 137 mmol/L (136-145)
[2020-01-11 13:12] LABS: BASOPHILS # (AUTO) 0.1 (0.0-0.1); BASOPHILS % 0.8 % (0.0-1.0); EOSINOPHILS # (AUTO) 0.3 (0.0-0.4); EOSINOPHILS % 4.6 % (0.0-6.0); HEMOGLOBIN 13.2 g/dL (14.0-18.0); LYMPHOCYTES # (AUTO) 1.4 (1.0-3.2); LYMPHOCYTES % 19.1 % (18.0-39.1); MEAN CORPUSCULAR HEMOGLOBIN 31.1 pg (28-32); MEAN CORPUSCULAR HGB CONC 33.8 g/dL (31-35); MEAN CORPUSCULAR VOLUME 91.8 fL (81-99); MONOCYTES # (AUTO) 0.8 (0.2-0.8); MONOCYTES % 10.3 % (4.4-11.3); NEUTROPHILS # (AUTO) 4.8 (2.1-6.9); NEUTROPHILS % 64.7 % (38.7-80.0); PLATELET COUNT 221 x10e3/uL (140-360); RED BLOOD COUNT 4.25 x10e6/uL (4.3-5.7); RED CELL DISTRIBUTION WIDTH 12.7 % (11.7-14.4)
[~2020-01-13] MED LIST changes: +B&O 60MG R/S 60 MG SUPP PR ONE; -GLYCOPYRROLATE INJ 0.2 MG/ML VIAL ONE; +IOPAMIDOL 300MG/ML 50ML INFUS..BTL IV ONE
[2020-01-13 12:25] VITALS: BP 141/85
--- NOTE | 2020-02-13 05:33 | Operative Report ---
DATE OF PROCEDURE: 01/13/2020 SURGEON: Oskar Diego MD PREOPERATIVE DIAGNOSES: 1. Bladder cancer. 2. Microhematuria. POSTOPERATIVE DIAGNOSES: 1. Recurrent dozens of bladder tumors totaling well over 5 cm of total diameter. 2. Microhematuria. OPERATIONS PERFORMED: 1. Cystourethroscopy with bilateral ureteral catheterization and retrograde ureteropyelography (separate procedure performed for microhematuria). 2. Interpretation of retrograde ureteropyelography. 3. Supervision of fluoroscopy, no radiologist present. 4. Cystourethroscopy with transurethral resection of dozens of bladder tumors, totaling 5 cm (separate procedure performed for the bladder tumors). ANESTHESIA: General. COMPLICATIONS: None. CLINICAL SUMMARY: Barak Duenas Jr is a 64-year-old man with prostate cancer and recurrent bladder cancer and he is brought for management of his additional bladder cancer. He is aware of the risks of bleeding, infection, injury to adjacent structures, need for additional procedures and elected to proceed. OPERATIVE PROCEDURE IN DETAIL: Informed consent was verified, Barak Duenas Junior was properly identified and taken to the operating room, placed on the cystoscopy table in supine position. Anesthesia was uneventfully begun. The patient was then carefully and gently repositioned in the dorsal lithotomy position with all pressure points well padded. His genitalia were prepared and draped in usual sterile fashion. The cystoscope sheath with the visual obturator in place was atraumatically inserted. The patient's urethra was guided unremarkably. Urethra through the normal sphincteric region through the prostate bed was significant for visually obstructing BPH and into the patient's bladder with panendoscopy revealed a scars from prior transurethral resection and numerous bladder tumors that were recurrent since the last resection. An 8-Scottish catheter was used to cannulate each ureter and retrograde ureteropyelograms were performed. Interpretation of retrograde ureteropyelography contrast was instilled in retrograde fashion bilaterally. There were no tumors no stones, and no diverticula. Unobstructed drainage was observed bilaterally fluoroscopically. Cold cup biopsy forceps were then utilized to biopsy the numerous tumors. Following this, we utilized Bugbee electrode to vaporize all visible tumors and fulgurate the base of these tumors and its surrounding. We utilized both 30 and 70 degree lens to ensure that we had excellent visualization. Hemostasis was excellent. The cystoscope withdrawn. Shane catheter was placed. A belladonna and opium suppository were placed. The patient was uneventfully reversed from anesthesia and taken to recovery room in stable condition. There were no complications of the procedure. He tolerated the procedure well, estimated blood loss was minimal. Plans will be to follow the patient up in the office and begin the BCG immunotherapy should the medication be available. Oskar MD Johnathon [place]/MODL /[id number] cc: Napoleon Parson
== END | disposition home or self-care (01) ==
LOC: OR 13:00
PROVIDERS: ATTEND Urology
DX: C67.9 Malignant neoplasm of bladder, unspecified (principal); I10 Essential (primary) hypertension; Z85.46 Personal history of malignant neoplasm of prostate; Z01.812 Encounter for preprocedural laboratory examination; F10.10 Alcohol abuse, uncomplicated
CPT/HCPCS: 36415; 52240; 74420; 80048; 85025; 88305; J0696; J1100; J2001; J2250; J2405; J2704; J3010; Q9967

== ENCOUNTER → 2020-04-13 | Day surgery (SDC) | payer BC, OTHER ==
[2020-04-10 14:43] LABS: BASOPHILS # (AUTO) 0.1 (0.0-0.1); BASOPHILS % 0.8 % (0.0-1.0); EOSINOPHILS # (AUTO) 0.4 (0.0-0.4); HEMATOCRIT 37.7 % (38.2-49.6); HEMOGLOBIN 12.9 g/dL (14.0-18.0); LYMPHOCYTES # (AUTO) 1.6 (1.0-3.2); LYMPHOCYTES % 21.3 % (18.0-39.1); MEAN CORPUSCULAR HEMOGLOBIN 30.4 pg (28-32); MEAN CORPUSCULAR HGB CONC 34.2 g/dL (31-35); MEAN CORPUSCULAR VOLUME 88.7 fL (81-99); MONOCYTES # (AUTO) 0.8 (0.2-0.8); MONOCYTES % 10.6 % (4.4-11.3); NEUTROPHILS # (AUTO) 4.6 (2.1-6.9); NEUTROPHILS % 61.5 % (38.7-80.0); PLATELET COUNT 188 x10e3/uL (140-360); RED BLOOD COUNT 4.25 x10e6/uL (4.3-5.7); RED CELL DISTRIBUTION WIDTH 12.8 % (11.7-14.4)
[~2020-04-13] MED LIST changes: +ACETAMINOPHEN 1000 MG/100 ML IV ONE; +KETOROLAC TROMETHAMINE 30 MG/ML VIAL ONE
--- OUTSIDE RECORDS SUMMARY | 2020-04-13 11:36 | XMS REPORT | CCD ---
Author Author Auto PRESLEY Regan Organization [facility] Address Unknown Phone Unavailable Care Team Providers Care Logging Tractor Operator Swamp Name Role Phone Poornima Mathews CP Allergies, Adverse Reactions, Alerts Substance Reaction Status NKDA Active Medications Medication Instructions Start Date End Date Status Ultram 50 mg oral 50 mg, 1 tab, Route: PO, Drug form: 2012 2012 Ordered tablet TAB, ONCE, Dosing Weight 93 .182, kg, Priority: STAT, Start date: 08/21/12 14:36:00, Stop date: 08/21/12 14:36:00 Bactroban 2% nasal 1 appl, NASAL, BID, 10 ea, 2012 Ordered ointment Substitution Allowed, OINT w/applicator Ultram 50 mg oral 1 - 2 tabs, PO, Q4-6H, PRN, 30 tab, 012 Ordered tablet as needed for pain, Substit ution Allowed clindamycin 300 mg 300 mg, 1 cap, PO, QID, 40 cap, 2012 Ordered oral capsule Substitution Allowed Vital Signs Most recent to oldest [Reference Range]: 1 Height 177.80 cm (2012 11:58:00) Weight 93.182 kg (2012 11:58:00)
--- OUTSIDE RECORDS SUMMARY | 2020-04-13 11:36 | XMS REPORT ---
Author Author [facility] t Organization [facility] t Address [address] [place] [address] Phone Unavailable Care Team Providers Care Signal Inspector Name Role Phone JANESSA WOLFF PCP JESUS TOLEDO Attphys Unavailable Payers Payer Name Policy Type Policy Number Effective Date Expiration Date Radha pollard [employer] [id number] 2018 00:00:00 [facility] Blue [employer] Exchange [id number] 2018 00:00:00 [facility] Problems This patient has no known problems. Allergies, Adverse Reactions, Alerts This patient has no known allergies or adverse reactions. Medications Ordered Medication Name Filled Medication Name Start Date Stop Da te Current Medication? Ordering Clinician Indication Dosage Frequency Signature (SIG) Comments Components Source Acetaminophen With Codeine (Tylenol With Codeine #3 Ta blet) 1 Each Tablet Acetaminophen With Codeine (Tylenol With Codeine #3 Tablet) 1 Each Tablet Yes 300 Every 4 Hours as needed for Mild Pain (1 -3) Or Fever>100.8 [facility] Indomethacin 50 Mg Capsule Indomethacin 50 Mg Capsule Yes 50 Three Times A Day as needed for Mild Pain (1-3) Or Fever>100.8 [facility] Losartan Potassium 100 Mg Tablet Losartan Potassium 100 Mg Tablet Yes 100 Daily [facility] Metoprolol Succinate 100 Mg Tab.er.24h Metoprolol Succinate 100 Mg Tab.er.24h Yes 100 Bedtime [facility] Rosuvastatin Calcium (Crestor) 10 Mg Tab Rosuvastatin Calcium (Crestor) 10 Mg Tab Yes 5 Bedtime [facility] Sulfamethoxazole/Trimethoprim (Bactrim Ds Tablet) 1 Ea ch Tablet Sulfamethoxazole/Trimethoprim (Bactrim Ds Tablet) 1 Each Tablet Yes [address] [facility] Procedures Procedure Date / Time Performed Performing Clinician [facility] e Dissection of lymph nodes of pelvis [facility] of abdomen and pelvis with contrast 2018 [facility] of chest, two views 2019-01-14 00:00:00 [facility] Encounters Start Date/Time End Date/Time Encounter Type Admission Type [facility] Care Department Encounter ID Source 2019-04-04 17:42:00 Admitted Inpatient [facility] [id number] [facility] 2019-01-14 16:19:00 2019-01-14 19:04:00 Departed Emergency Room [facility] [id number] [facility] 2019-01-14 12:05:00 2019-01-14 12:05:00 Registered Clinic [facility] [id number] [facility] Results Test Description Test Time Test Comments Results Result Comments Source Sodium Level 2019-04-07 11:06:00 Test Item Sodium Level (test code = 2951-2) 133 136-145 [facility] [id number] 11:06:00* Test Item Value Reference Range Interpretation Comments Potassium Level (test code = 2823-3) 3.3 3.5-5.1 [facility]Ch[facility]ide [id number] 11:06:00* Test Item Value Reference Range Interpretation Comments Chloride Level (test code = 2075-0) 100 98-107 [facility] CenterCar[facility] Dioxide Eqhki6608-94-83 11:06:00* Test Item Value Reference Range Interpretation Comments Carbon Dioxide Level (test code = 2028-9) 22 22-29 [facility] CenterAnion [id number] 11:06:00* Test Item Value Reference Range Interpretation Comments Anion Gap (test code = 25692-1) 14.3 8-16 [facility] Urea Bbarzxxo2520-99-26 11:06:00* Test Item Value Reference Range Interpretation Comments Blood Urea Nitrogen (test code = 3094-0) 8 7-26 [facility]inine2019-05-09 11:06:00* Test Item Value Reference Range Interpretation Comments Creatinine (test code = 2160-0) 0.83 0.72-1.25 [facility] CenterBUN/Creatinine Twjfm9516-41-64 11:06:00* Test Item Value Reference Range Interpretation Comments BUN/Creatinine Ratio (test code = 3097-3) 10 6- [facility] CenterEstimat Glomerular Filtration Rate 2019-04-07 11:06:00* Test Item Value Reference Range Interpretation Comments Estimat Glomerular Filtration Rate (test code = 344090209) > 60 >60 Ranges were taken from the National Kidney Disease Education Program and the [facility] literature.Reference ranges:60 or greater: Lxpgrq96-99 ( for 3 consecutive months): Chronic kidney disease 15 or less: Kidney failureTitus [facility] Medical CenterGlucose Mrvmc9922-50-16 11:06:00* Test Item Value Reference Range Interpretation Comments Glucose Level (test code = WBA7048) 157 74-118 [facility] CenterCalcium Rnwev5854-27-81 11:06:00* Test Item Value Reference Range Interpretation Comments Calcium Level (test code = 68783-5) 9.1 8.4-10.2 [facility] CenterWhite Blood Jflvr8565-42-20 09:37:00* Test Item Value Reference Range Interpretation Comments White Blood Count (test code = 6690-2) 10.04 4.8-10.8 [facility] CenterRed Blood Acsag4015-29-30 09:37:00* Test Item Value Reference Range Interpretation Comments Red Blood Count (test code = 789-8) 4.44 4.3-5.7 [facility] CenterHemoglobin2019-05-09 09:37:00* Test Item Value Reference Range Interpretation Comments Hemoglobin (test code = 98807-2) 14.0 14.0-18.0 [facility] CenterHematocrit2019-05-09 09:37:00* Test Item Value Reference Range Interpretation Comments Hematocrit (test code = 4544-3) 39.5 38.2-49.6 [facility] CenterMean Corpuscular Jaiako9155-81-03 09:37:00* Test Item Value Reference Range Interpretation Comments Mean Corpuscular Volume (test code = 787-2) 89.0 81-99 [facility] CenterMean Corpuscular Tvcxqfalhz0132-28-15 09:37:00* Test Item Value Reference Range Interpretation Comments Mean Corpuscular Hemoglobin (test code = 785-6) 31.5 28-32 [facility] Hemoglobin Concent 2019-04-07 09:37:00* Test Item Value Reference Range Interpretation Comments Mean Corpuscular Hemoglobin Concent (test code = 786-4) 35.4 31-35 [facility] CenterRed Cell Distribution Rlyak9653-32-66 09:37:00* Test Item Value Reference Range Interpretation Comments Red Cell Distribution Width (test code = 63524-5) 12.1 11.7 -14.4 [facility] CenterPlatelet Iozuj9209-84-31 09:37:00* Test Item Value Reference Range Interpretation Comments Platelet Count (test code = 777-3) 176 140-360 [facility] CenterNeutrophils (%) (Auto)2019-04-07 09:37:00 * Test Item Value Reference Range Interpretation Comments Neutrophils (%) (Auto) (test code = 45123-5) 71.6 38.7-80.0 [facility] CenterLymphocytes (%) (Auto)2019-04-07 09:37:00 * Test Item Value Reference Range Interpretation Comments Lymphocytes (%) (Auto) (test code = 736-9) 16.4 18.0-39.1 [facility] CenterMonocytes (%) (Auto)2019-04-07 09:37:00* Test Item Value Reference Range Interpretation Comments Monocytes (%) (Auto) (test code = 5905-5) 9.8 4.4-11.3 [facility] CenterEosinophils (%) (Auto)2019-04-07 09:37:00 * Test Item Value Reference Range Interpretation Comments Eosinophils (%) (Auto) (test code = 713-8) 1.7 0.0-6.0 [facility] CenterBasophils (%) (Auto)2019-04-07 09:37:00* Test Item Value Reference Range Interpretation Comments Basophils (%) (Auto) (test code = 706-2) 0.1 0.0-1.0 [facility] CenterIM GRANULOCYTES %2019-04-07 09:37:00* Test Item Value Reference Range Interpretation Comments IM GRANULOCYTES % (test code = IM GRANULOCYTES %) 0.4 0.0- 1.0 [facility] CenterNeutrophils # (Auto)2019-04-07 09:37:00* Test Item Value Reference Range Interpretation Comments Neutrophils # (Auto) (test code = 751-8) 7.2 2.1-6.9 [facility] CenterLymphocytes # (Auto)2019-04-07 09:37:00* Test Item Value Reference Range Interpretation Comments Lymphocytes # (Auto) (test code = 88927-2) 1.7 1.0-3.2 [facility] CenterMonocytes # (Auto)2019-04-07 09:37:00* Test Item Value Reference Range Interpretation Comments Monocytes # (Auto) (test code = 742-7) 1.0 0.2-0.8 [facility] CenterEosinophils # (Auto)2019-04-07 09:37:00* Test Item Value Reference Range Interpretation Comments Eosinophils # (Auto) (test code = 711-2) 0.2 0.0-0.4 [facility] CenterBasophils # (Auto)2019-04-07 09:37:00* Test Item Value Reference Range Interpretation Comments Basophils # (Auto) (test code = 704-7) 0.0 0.0-0.1 [facility] CenterAbsolute Immature Granulocyte (auto 2019-04-07 09:37:00* Test Item Value Reference Range Interpretation Comments Absolute Immature Granulocyte (auto (shell t code = Absolute Immature Granulocyte (auto) 0.04 0-0.1 [facility] CenterBONE and/or JOINT WHOLE [id number] 20:55:00 [place] [address] Patient Name: PRESLEY PAGE JR MR #: [id number] : 1955 Age/Sex: 63/M Req #: [id number] Adm Physician: Ordered by: JESUS TOLEDO MD Report #: [id number] Location: [place] Room/Bed: Procedure: [id number] NM/TRAVIS NE and/or JOINT WHOLE BODY Exam Date: 01/14/19 Exam Time: 1230 REPORT STATUS: Signed Bone Scan, delayed phase INDICATION: 63 M with elevated PSA and enlarged prostate; prostate biopsy results pending COMPARISON: CT abdomen/pelvis REPORT: Approximately 3 hours following intravenous administration of 26.5 m Ci of Tc-99m MDP, delayed total body images in the anterior and posterior pr ojections and selected spot images were obtained. Diffusely increased tra cer is seen throughout the right ilium and right ischium. The right hemipelvi s has an expansile appearance. Otherwise, distribution of tracer activity is unremarkable throughout the skeletal system. No abnormal accumulation of tracer is seen in the soft tissues or urinary tract. IMPRESSION: The diffuse osteoblastic process in the right ilium and ischium favors Paget's disease over bone metastases because of its expansile appearance. There are no lesions elsewhere in the skeletal system to suggest a pattern of metastatic bone disease. Signed by: Dr. Je Adams M.D. on 01/14/2019 9:06 PM Dictated By: JE ADAMS MD 05 COPY TO: JESUS TOLEDO MD CHEST 2 [id number] 15:00:00 [place] [address] Patient Name: PRESLEY PAGE MR #: [id number] : 1955 Age/Sex: 63/M Req #: [id number] Adm Physician: Ordered by: JESUS TOLEDO MD Report #: [id number] Location: [place] Room/Bed: Procedure: [id number] DX/CHEST 2 VIEWS Exam Date: 01/14/19 Exam Time: 1425 REPORT STATUS: Signed EXAMINATION: CHEST 2 VIEWS INDICATION: Renal malignancy. COMPARISON: None FINDINGS: TUBES and LINES: None. LUNGS: Lungs are well inflated. Lungs are clear. There is no evidence of pneumonia or pulmonary edema. P LEURA: No pleural effusion or pneumothorax. HEART AND MEDIASTINUM: The c ardiomediastinal silhouette is unremarkable. BONES AND SOFT TISSUES: N o acute osseous lesion. Soft tissues are unremarkable. UPPER ABDOMEN: No free air under the diaphragm. IMPRESSION: No acute radiographic abn ormality. Signed by: Dr. Arthur Bryan MD on 01/14/2019 3:08 PM Dictat ed By: ARTHUR BRYAN MD 1508 Transcribed By: JOHN on 01/14/19 1508 COPY TO: JESUS TOLEDO MD CT ABDOMEN/PELVIS [id number] 14:37:00 [place] [address] Patient Name: PRESLEY PAGE MR #: [id number] : 1955 Age/Sex: 63/M Req #: [id number] Adm Physician: Ordered by: JESUS TOLEDO MD Report #: [id number] Location: [place] Room/Bed: Procedure: [id number] CT/CT AB DOMEN/PELVIS W Exam Date: 01/14/19 Exam Time: 1419 [...] reasonably achievable. COMPLICATIONS: None FINDINGS: LOWER THORAX: Un remarkable. HEPATOBILIARY: Diffusely decreased attenuation, compatible with fatty infiltration. No mass. No biliary dilation. No calcified gallst one. SPLEEN: No splenomegaly. PANCREAS: No focal masses or ductal dilat ation. ADRENALS: No discrete adrenal nodule. KIDNEYS/URETERS: No hy dronephrosis, stones, or definite solid mass lesions. PELVIC ORGANS/BLADDER : Mild enlargement of the prostate, 5.9 cm (ML). The urinary bladder is par tially decompressed, and when allowing for the amount of decompression, the wa ll appears diffusely thick, questionable 6 mm intraluminal density at the infe rior aspect (sagittal image 76). GI TRACT: No dilation or wall thickenin g identified. No inflammatory changes about the cecum. PERITONEUM / RETR OPERITONEUM: No free air or fluid. LYMPH NODES: No pathologically enlarged lym ph node. VESSELS: Scattered atherosclerotic vascular calcifications, including the coronary arteries. BONES: Mild diffusely heterogeneous sclerosis and t hickening of the right iliac bone and right ischium. A small focus of subchond ral curvilinear sclerosis at the weightbearing portion of the right femoral he ad without associated subchondral collapse. SOFT TISSUES: A small fat-contai danielle umbilical hernia and a moderate fat-containing left inguinal hernia, with out associated inflammatory changes. IMPRESSION: 1. Mildly enlarged prostate. 2. The findings involving the osseous structures of the right hemip carmen, are likely the sequela of Paget disease. However, in the setting of [place] cancer with elevated PSA, a nuclear medicine bone scan may be warranted for confirmation. 3. 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 4. Diffuse bl adder wall thickening, may reflect chronic outlet obstruction or cystitis in t he appropriate setting. Questionable nonspecific 6 mm intraluminal density at the inferior aspect of the bladder, direct visualization may be warranted for further characterization. 5. Coronary atherosclerosis. 6. Hepatic steatosi s. Signed by: Dr. Mukund Chaudhary D.O., M.M.M. on 01/14/2019 2:52 PM Dic tated By: MUKUND CHAUDHARY DO 1 452 Transcribed By: JOHN on 01/14/19 5389 COPY TO: JESUS TOLEDO MD
--- OUTSIDE RECORDS SUMMARY | 2020-04-13 11:36 | XMS REPORT | Continuity of Care Document ---
Author Author [employer] Address Unknown Phone Unavailable Care Team Providers Care Noodle Press Operator Name Role Phone [employer] Unavailable Un available Problems Problem Status Onset Date Classification Date Reported Comments Source ABSCESS Active 08/20/2012 [facility] Medications Medication Details Route Status Patient Instructions Ordering Provider Order Date Source Ultram 50 mg oral tablet 50 mg , 1 tab, Route: PO, Drug form: TAB, ONCE, Dosing Weight 93.182, kg, Priority: STAT, Start date: 08/21/12 14:36:00, Stop date: 08/21/12 14:36:00 PO Active [facility] 2012 [facility] Bactroban 2% nasal ointment w/applicator 1 appl, NASAL, BID, 10 ea, Substitution Allowed, OINT NASAL Active [place] [facility] 2012 [facility] Ultram 50 mg oral tablet 1 - 2 tabs, PO, Q4-6H, PRN, 30 tab, as needed for pain, Substitution Allowed PO Active [place] [facility] 2012 [facility] clindamycin 300 mg oral capsule 300 mg, 1 cap, PO, QID, 40 cap, Substitution Allowed PO Active [facility] 2012 [facility] Allergies, Adverse Reactions, Alerts No Known Medication Allergies Immunizations No Data Provided for This Section Results No Data Provided for This Section Pathology Reports No Data Provided for This Section Diagnostic Reports No Data Provided for This Section Consultation Notes No Data Provided for This Section Discharge Summaries No Data Provided for This Section History and Physicals No Data Provided for This Section Vital Signs Vital Sign Value Date Comments Source Weight 93.182 2012 [facility] Height 177.80 cm 2012 [facility] Encounters Location Location Details Encounter Type Encounter Number Reason For Visit Attending Provider ADM Date DC Date Status Source [facility] Emergency [id number] JIL MONET 2012 2012 Discharged [facility] Procedures No Data Provided for This Section Assessment and Plan No Data Provided for This Section Plan of Care No Data Provided for This Section Social History No Data Provided for This Section Family History No Data Provided for This Section Advance Directives No Data Provided for This Section Functional Status No Data Provided for This Section
[2020-04-13 15:00] VITALS: BP 151/94
--- NOTE | 2020-04-16 01:09 | Operative Report ---
DATE OF PROCEDURE: 04/13/2020 SURGEON: Oskar Diego MD PREOPERATIVE DIAGNOSIS: Bladder cancer. POSTOPERATIVE DIAGNOSIS: Bladder cancer. OPERATIONS PERFORMED: 1. Cystourethroscopy with bilateral ureteral catheterization and retrograde ureteropyelography. 2. Interpretation of retrograde ureteropyelography. 3. Supervision of fluoroscopy, no radiologist present. ANESTHESIA: General. COMPLICATIONS: None. CLINICAL SUMMARY: Barak Duenas Jr. is a complicated 64-year-old man with bladder cancer and prostate cancer. His prostate cancer was treated with external beam radiotherapy with neoadjuvant hormonal therapy. He has had 3 TURBT surgeries and is brought to the operating room in hopes of rendering him bladder cancer free. He is aware of the risks of bleeding, infection, injury to adjacent structures, need for additional procedures and elected to proceed. OPERATIVE PROCEDURE IN DETAIL: Informed consent was verified. Barak Duenas was properly identified, taken to the operating room, placed on the cystoscopy table in supine position. Anesthesia was uneventfully begun. The patient was then carefully gently repositioned in the dorsal lithotomy position with all pressure points well padded. His genitalia were prepared and draped in the usual sterile fashion. The cystoscope sheath with the visual obturator in place was atraumatically inserted into the patient's urethra, was guided unremarkable distal urethra through the normal sphincteric region, through the prostate bed, which was significant for mild BPH. We entered the patient's bladder and drained it. Panendoscopy revealed grade 2 trabeculations, but no tumors, no diverticula. There was a submillimeter stone, it was evacuated out and was too small to grasp. There were some areas where there was scarring from prior TURBT procedures. An open-ended ureteral catheter was used to cannulate each ureter and retrograde ureteral pyelograms were performed. Interpretation of retrograde ureteropyelography contrast was instilled in retrograde fashion bilaterally. There were no tumors, no stones, no diverticula. Unobstructed drainage was observed bilaterally fluoroscopically. There was medial deviation of both distal ureters of unclear etiology. The patient's bladder was drained. Cystoscope was withdrawn. Belladonna and opium suppository was placed. The patient was uneventfully reversed from anesthesia and taken to the recovery room in stable condition. There were no complications to the procedure. The patient tolerated the procedure well. Explicit postop instructions were given. We will follow the patient up in the office. We will attempt to obtain BCG in order to begin the patient's immunotherapy. MD SOHA Dixon/NAPOLEON /[id number]
== END | disposition home or self-care (01) ==
LOC: OR 11:34
PROVIDERS: ATTEND Urology
DX: C67.9 Malignant neoplasm of bladder, unspecified (principal); C61 Malignant neoplasm of prostate; N17.9 Acute kidney failure, unspecified; N21.0 Calculus in bladder; N32.89 Other specified disorders of bladder; I10 Essential (primary) hypertension; N35.919 Unspecified urethral stricture, male, unspecified site; N40.1 Benign prostatic hyperplasia with lower urinary tract symptoms; R39.14 Feeling of incomplete bladder emptying; R35.1 Nocturia; K40.90 Unilateral inguinal hernia, without obstruction or gangrene, not specified as recurrent; E29.1 Testicular hypofunction; F17.200 Nicotine dependence, unspecified, uncomplicated; Z98.890 Other specified postprocedural states; Z01.810 Encounter for preprocedural cardiovascular examination; Z01.812 Encounter for preprocedural laboratory examination; Z01.818 Encounter for other preprocedural examination; Z11.59 Encounter for screening for other viral diseases; Z68.31 Body mass index [BMI] 31.0-31.9, adult; Z92.21 Personal history of antineoplastic chemotherapy; Z92.3 Personal history of irradiation
CPT/HCPCS: 36415; 52005; 74420; 85025; 87635; 93005; C1758; C1769; J0131; J0696; J1100; J1885; J2001; J2250; J2405; J2704; J3010; Q9967

== ENCOUNTER → 2020-07-20 | Day surgery (SDC) | payer BC, OTHER ==
[~2020-07-20] VITALS: Ht 177.8 cm; Wt 102.1 kg
[~2020-07-20] MED LIST changes: -ACETAMINOPHEN 1000 MG/100 ML IV ONE; -KETOROLAC TROMETHAMINE 30 MG/ML VIAL ONE; +LEVOCETIRIZINE D5 MG PO; +METOPROLOL SUCC50 MG PO
[2020-07-20 15:25] VITALS: BP 124/78
--- NOTE | 2020-07-21 15:08 | Operative Report ---
DATE OF PROCEDURE: 07/20/2020 SURGEON: Oskar Diego MD PREOPERATIVE DIAGNOSIS: Bladder cancer. POSTOPERATIVE DIAGNOSES: 1. Bladder cancer. 2. Mild urethral stricture disease. OPERATION PERFORMED: 1. Cystourethroscopy with calibration and dilation of urethral stricture disease (separate procedure performed with a mild urethral stricture . 2. Cystourethroscopy with bilateral ureteral catheterization and retrograde ureteropyelography (separate procedure performed for the bladder cancer). 3. Interpretation of retrograde ureteropyelography. 4. Supervision of fluoroscopy, no radiologist is present. ANESTHESIA: General. COMPLICATIONS: None. CLINICAL SUMMARY: Barak Duenas Junior is a 64-year-old man with complex urological history. prostate cancer. He is status radiotherapy with neoadjuvant hormonal therapy. He also is status post which is negative for metastatic disease. The patient was also incidentally noted to have bladder cancer. He had bladder cancer recurrent with multifocal disease. He is status post induction for course of BCG immunotherapy. The patient is brought to the operating room for a surveillance evaluation of his entire genitourinary tract. He is aware of the risks of bleeding, infection, injury to adjacent structures and he elected to proceed. OPERATIVE PROCEDURE IN DETAIL: Informed consent was verified. Barak Duenas Jr. was properly identified, taken to the operating room, placed on the cystoscopy table in supine position. Anesthesia was uneventfully begun. The patient was then carefully and gently repositioned in dorsal lithotomy position with all pressure points carefully well padded. His genitalia were prepared and draped in usual sterile fashion. The 21-Belarusian cystourethroscope sheath with the visual obturator in place, was atraumatically inserted into the patient's urethra. He was guided down the unremarkable distal urethra through the bulbar region, where there was some narrowing just external urinary sphincter. We gently dilated across this stenosis and dilated to 21-Belarusian in size. We then went through the prostate bed, which was significant for visually obstructing BPH. We entered the patient's bladder where there were grade 2 trabeculations, but no tumors, no stones, no diverticula were present. We utilized both the 30 and 70 degree lens to ensure no recurrent bladder cancer has occurred. An 8-Belarusian catheter was used to cannulate each ureter and retrograde ureteropyelography was performed. INTERPRETATION OF RETROGRADE URETEROPYELOGRAPHY: Contrast was instilled in retrograde fashion bilaterally. There were no tumors, there were no stones, there were no diverticula. Unobstructed drainage was observed bilaterally fluoroscopically. There was medial deviation of both distal ureters, more pronounced on the right hand side, plus this caused no obstruction as drainage was prompt. Multiple hemoclips were present in the pelvis from prior . The patient's bladder was drained. Cystoscope was withdrawn. Belladonna and opium suppository were placed. The patient was uneventfully reversed from anesthesia and taken to recovery room in stable condition. There were no complications to the procedure. He tolerated the procedure well. Plans will be to follow the patient for uroflowmetry and bladder ultrasonography. Ongoing urological followup including bladder cancer and prostate cancer surveillance and management is indicated. MD SOHA Dixon/NPAOLEON /[id number] cc: Sophy Carrillo DO
== END | disposition home or self-care (01) ==
LOC: OR 12:15 → MERGE 15:00
PROVIDERS: ATTEND Urology
DX: C67.9 Malignant neoplasm of bladder, unspecified (principal); N35.912 Unspecified bulbous urethral stricture, male; N40.1 Benign prostatic hyperplasia with lower urinary tract symptoms; N13.8 Other obstructive and reflux uropathy; N32.89 Other specified disorders of bladder; I10 Essential (primary) hypertension; F17.200 Nicotine dependence, unspecified, uncomplicated; Z01.810 Encounter for preprocedural cardiovascular examination; Z01.812 Encounter for preprocedural laboratory examination; Z11.59 Encounter for screening for other viral diseases
CPT/HCPCS: 52281; 74420; 93005; C1758; J0696; J1100; J2001; J2250; J2405; J2704; J3010; Q9967; U0002

== ENCOUNTER → 2025-09-20 | Outpatient (REF) | payer MEDICARE ==
[~2025-09-20] MED LIST changes: -B&O 60MG R/S 60 MG SUPP PR ONE; -CEFTRIAXONE SOD 1 GM/NS 50 ML 50 ML IV ONE; -DEXAMETHASONE SOD PHOS INJ 4 MG/ML VIAL ONE; -FENTANYL CITRATE/PF 100MCG/2 ML INJ ONE; -IOPAMIDOL 300MG/ML 50ML INFUS..BTL IV ONE; -LIDOCAINE HCL 2% LOCAL INJ 5 ML SDV VIAL INJ ONE; -MIDAZOLAM HCL 2 MG/2 ML VIAL ONE; -ONDANSETRON HCL INJ 2MG/ML 2ML 2 MG/ML VIAL ONE; -PROPOFOL IV EMULSION 10 MG/ML 20 ML VIAL ONE; -SEVOFLURANE INHAL SOLN 250 ML PEN BTL ONE
== END ==
LOC: US 11:45
PROVIDERS: ATTEND Urology
DX: C67.9 Malignant neoplasm of bladder, unspecified (principal)
CPT/HCPCS: 76770; 76857